=== PATIENT | female | born 1985 | race Caucasian/White ===

== ENCOUNTER 2017-07-31 11:51 | Emergency (ER) | payer SELFPAY ==
[2017-07-31 11:58] VITALS: BP 136/92
--- NOTE | 2017-07-31 13:07 | ER Document Report ---
ED Medical Screen (RME) - General Chief Complaint: Abdominal Pain Stated Complaint: ABDOMINAL PAIN Time Seen by Provider: 07/31/17 13:03 Mode of Arrival: Ambulatory Information source: Patient Notes: This is a 32-year-old female with no medical problems who presents to the emergency room with right flank pain which is radiated to the right lower quadrant. Patient denies any fever or chills or recent illnesses. She is 2 para 2 and her last menstrual period was 2 weeks ago, she does have a history of a bilateral tubal ligation. Patient states the pain was up on the right flank posteriorly and seems to have moved down to the right lower quadrant. She denies loss of appetite. TRAVEL OUTSIDE OF THE [place] IN LAST 30 DAYS: No - HPI Onset: Yesterday Onset/Duration: Gradual Quality of pain: Dull Severity: Moderate Pain Level: 2 Associated Symptoms: denies: Chest pain, Dysuria, Shortness of breath Exacerbated by: Denies Relieved by: Denies Similar symptoms previously: Yes Recently seen / treated by doctor: No - Related Data Smoking: Non-smoker Frequency of alcohol use: None Drug Abuse: None Allergies/Adverse Reactions: No Known Allergies Allergy (Verified 07/31/17 11:52) Past Medical History - General Information source: Patient - Social History Cigarette use (# per day): No Chew tobacco use (# tins/day): No Frequency of alcohol use: None Drug Abuse: None Lives with: Family Family history: Reviewed & Not Pertinent - Past Medical History Cardiac Medical History: Reports: None Pulmonary Medical History: Reports: None EENT Medical History: Reports: None Neurological Medical History: Reports: None Endocrine Medical History: Reports: None Renal/ Medical History: Reports: None. Denies: Hx Peritoneal Dialysis Malignancy Medical History: Reports: None GI Medical History: Reports: Hx Gastroesophageal Reflux Disease Past Surgical History: Reports: Hx Section - x2, Hx Cholecystectomy, Hx Tubal Ligation Review of Systems - Review of Systems Constitutional: denies: Chills, Fever EENT: No symptoms reported Cardiovascular: No symptoms reported Respiratory: No symptoms reported Gastrointestinal: No symptoms reported Genitourinary: See HPI Female Genitourinary: No symptoms reported Musculoskeletal: No symptoms reported Skin: No symptoms reported Hematologic/Lymphatic: No symptoms reported Neurological/Psychological: No symptoms reported Physical Exam - Vital signs Vitals: Temp Pulse Resp BP Pulse Ox 98.2 F 89 16 136/92 H 96 07/31/17 11:56 07/31/17 11:56 07/31/17 11:56 07/31/17 11:56 07/31/17 11:56 Notes: Physical exam: GENERAL: 32-year-old female, alert and oriented 3, no acute distress HEAD: Atraumatic, normocephalic. EYES: Pupils equal round and reactive to light, extraocular movements intact, sclera anicteric, conjunctiva are normal. ENT: TMs normal, nares patent, oropharynx clear without exudates. Moist mucous membranes. NECK: Normal range of motion, supple without obvious mass or JVD. LUNGS: Breath sounds clear to auscultation bilaterally and equal. No wheezes rales or rhonchi. HEART: Regular rate and rhythm without murmurs, rubs or gallops. ABDOMEN: Soft, normoactive bowel sounds. No tenderness to palpation. No guarding, no rebound. No masses appreciated. EXTREMITIES: Normal range of motion, no pitting or edema. No clubbing or cyanosis. NEUROLOGICAL: Cranial nerves II through XII grossly intact. Normal speech, moving all extremities. PSYCH: Normal mood, normal affect. SKIN: Warm, Dry, normal turgor, no rashes or lesions noted. Course - Re-evaluation Re-evalutation: 07/31/17 14:22 Note: Patient's abdomen since my exam was quite benign. She did receive a call shortly after my exam with a family emergency and she had to leave. I was told her this after she had signed an AMA form. - Vital Signs Vital signs: Temp Pulse Resp BP Pulse Ox 98.2 F 89 16 136/92 H 96 07/31/17 11:56 07/31/17 11:56 07/31/17 11:56 07/31/17 11:56 07/31/17 11:56 Doctor's Discharge - Discharge Clinical Impression: Abdominal pain Condition: Stable Disposition: AGAINST MEDICAL ADVICE
== END 2017-07-31 13:16 | disposition left against medical advice (07) ==
LOC: ER 11:51
DX: R10.9 Unspecified abdominal pain (principal); Z98.51 Tubal ligation status; Z87.19 Personal history of other diseases of the digestive system; Z90.49 Acquired absence of other specified parts of digestive tract; Z53.29 Procedure and treatment not carried out because of patient's decision for other reasons
CPT/HCPCS: 99281